=== PATIENT | female | born 1980 | race Caucasian/White ===

== ENCOUNTER 2017-07-10 20:00 | Emergency (ER) | payer OTHER ==
[2017-07-10 20:20] VITALS: BP 133/88
[2017-07-10] MEDS ORDERED: HYDROMORPHONE HCL INJ/PF 2 MG/ML AMPULE IM ONE (20:28)
[2017-07-10] MEDS ORDERED: LIDOCAINE 5% (700 MG) TRANSDERMAL ADH..PATCH TP ONE (20:29)
--- NOTE | 2017-07-10 20:34 | ER Document Report ---
HPI - HPI Patient complains to provider of: Back pain Onset: Yesterday Onset/Duration: Sudden Quality of pain: Achy Pain Level: 4 Context: Patient has a history of chronic back pain that worsened yesterday after she fell while dancing with her child. Patient states that her child pulled her over and she landed on top of him on the floor. Patient denies any radiculopathy or paresthesia. Patient denies any urinary retention or incontinence symptoms. Patient states pain is not typical location where she has chronic back pain flareups. Associated Symptoms: denies: Fever, Headache Exacerbated by: Movement Relieved by: Denies Similar symptoms previously: Yes Recently seen / treated by doctor: No - ROS ROS below otherwise negative: Yes Systems Reviewed and Negative: Yes All other systems reviewed and negative - CONSTITUTIONAL Constitutional: DENIES: Fever, Chills - GASTROINTESTINAL Gastrointestinal: DENIES: Nausea - URINARY Urinary: DENIES: Dysuria, Urgency, Frequency - REPRODUCTIVE Reproductive: DENIES: : - MUSCULOSKELETAL Musculoskeletal: REPORTS: Back Pain. DENIES: Extremity pain - DERM Skin Color: Normal Skin Problems: None Past Medical History - General Information source: Patient - Social History Smoking Status: Never Smoker Frequency of alcohol use: None Drug Abuse: None Occupation: None Lives with: Family Family History: Reviewed & Not Pertinent Musculoskeltal Medical History: Reports Other - Chronic back pain Psychiatric Medical History: Reports: Hx Anxiety, Hx Depression, Hx Post Traumatic Stress Disorder Surgical Hx: Negative - Immunizations Hx Diphtheria, Pertussis, Tetanus Vaccination: Yes Hx Pneumococcal Vaccination: 02/29/00 Vertical Provider Document - CONSTITUTIONAL Agree With Documented VS: Yes Exam Limitations: No Limitations General Appearance: WD/WN, No Apparent Distress Notes: PHYSICAL EXAMINATION: GENERAL: Well-appearing, well-nourished and in no acute distress. HEAD: Atraumatic, normocephalic. EYES: sclera clear, anicteric, conjunctiva are normal. ENT: nares patent, Moist mucous membranes. NECK: Normal range of motion, supple no lymphadenopathy LUNGS: respirations unlabored HEART: Regular rate and rhythm without murmurs EXTREMITIES: Normal range of motion, no pitting or edema. No cyanosis. Gait normal, pt ambulates without difficulty BACK: Thoracic paraspinal tenderness, no thoracic midline tenderness, lumbar paraspinal, mild lower midline tenderness, no deformities or step-offs. No CVA tenderness. NEUROLOGICAL: Cranial nerves grossly intact. Normal speech, normal gait. No saddle anesthesia. No foot drop PSYCH: Normal mood, normal affect. SKIN: Warm, Dry, normal turgor, no rashes or lesions noted. - INFECTION CONTROL TRAVEL OUTSIDE OF THE [place] IN LAST 30 DAYS: No Course - Vital Signs Vital signs: Temp Pulse Resp BP Pulse Ox 98.1 F 105 H 133/88 H 99 07/10/17 20:18 07/10/17 20:18 07/10/17 20:18 07/10/17 20:18 Discharge - Discharge Clinical Impression: Back pain Qualifiers: Back pain location: back pain in unspecified location Chronicity: unspecified Back pain laterality: bilateral Qualified Code(s): M54.9 - Dorsalgia, unspecified Condition: Stable Disposition: HOME, SELF-CARE Instructions: Chronic Back Pain ([facility]), Ice Packs ([facility]), Low Back Pain ([facility]) Additional Instructions: Return immediately for any new or worsening symptoms Followup with your primary care provider, call tomorrow to make a followup appointment Do not take the muscle relaxant if you are taking your Xanax, avoid mixing these medications to prevent adverse interactions Prescriptions: Methocarbamol [Robaxin 500 Mg Tablet] 500 mg PO QID PRN #20 tablet PRN Reason: Referrals: [facility] [Provider Group] - Follow up as needed
== END 2017-07-10 21:01 | disposition home or self-care (01) ==
LOC: ER 20:00
DX: M54.9 Dorsalgia, unspecified (principal); W01.0XXA Fall on same level from slipping, tripping and stumbling without subsequent striking against object, initial encounter; Y93.41 Activity, dancing
CPT/HCPCS: 99283; 96372; J1170

== ENCOUNTER 2017-12-27 01:13 | Emergency (ER) | payer OTHER ==
[2017-12-27] MEDS ORDERED: KETOROLAC TROMETHAMINE INJ/PF 30 MG/1 ML SDV IV ONE (03:02)
[2017-12-27] MEDS ORDERED: NORMAL SALINE 1000 ML 1,000 ML IV ONE (03:02)
[2017-12-27 03:15] LABS: ABSOLUTE EOSINOPHILS # (AUTO) 0.1 10^3/uL (0.0-0.6); ABSOLUTE LYMPHOCYTES (AUTO) 2.4 10^3/uL (0.5-4.7); ABSOLUTE MONOCYTES (AUTO) 0.4 10^3/uL (0.1-1.4); ABSOLUTE NEUT (AUTO) 3.2 10^3/uL (1.7-8.2); BASOPHILS % (AUTO) 0.6 % (0-2); EOSINOPHILS % (AUTO) 1.3 % (0-6); HEMATOCRIT 39.6 % (36.0-47.0); HEMOGLOBIN 13.2 g/dL (12.0-15.5); LYMPHOCYTES % (AUTO) 39.2 % (13-45); MEAN CORPUSCULAR HEMOGLOBIN 29.5 pg (27.0-33.4); MEAN CORPUSCULAR HGB CONC 33.3 g/dL (32.0-36.0); MEAN CORPUSCULAR VOLUME 89 fl (80-97); MONOCYTES % (AUTO) 5.9 % (3-13); PLATELET COUNT 240 10^3/uL (150-450); RED BLOOD COUNT 4.47 10^6/uL (3.72-5.28); RED CELL DISTRIBUTION WIDTH 13.4 % (11.5-14.0); TOTAL CELLS COUNTED % (AUTO) 100 %
[2017-12-27 03:36] LABS: ALANINE AMINOTRANSFERASE 22 U/L (9-52); ALBUMIN 4.5 g/dL (3.5-5.0); ALKALINE PHOSPHATASE 69 U/L (38-126); ANION GAP 13 (5-19); ASPARTATE AMINO TRANSFERASE 28 U/L (14-36); BILIRUBIN,DIRECT 0.1 mg/dL (0.0-0.4); BILIRUBIN,TOTAL 0.5 mg/dL (0.2-1.3); BLOOD UREA NITROGEN 7 mg/dL (7-20); CALCIUM 9.6 mg/dL (8.4-10.2); CARBON DIOXIDE 25 mmol/L (22-30); CHLORIDE 106 mmol/L (98-107); GLUCOSE 100 mg/dL (75-110); POTASSIUM 3.9 mmol/L (3.6-5.0); TOTAL PROTEIN 7.1 g/dL (6.3-8.2)
--- NOTE | 2017-12-27 03:51 | ER Document Report ---
ED General - General Chief Complaint: Abdominal Pain Stated Complaint: ABDOMINAL PAIN Time Seen by Provider: 12/27/17 01:54 Notes: Is a 37-year-old female who presents to the emergency department with right lower abdominal pain. She states the pain feels just like when she had ovarian cysts. Last time she had her ovarian cysts on both sides. She has been having this pain for the past 2 weeks, but has dealt with the pain at home. The pain is severe enough to where she feels she needs to have a hysterectomy. She was told previously that she was going to eventually need a hysterectomy, but because of her age she was told she could not have one. TRAVEL OUTSIDE OF THE [place] IN LAST 30 DAYS: No - Related Data Allergies/Adverse Reactions: No Known Allergies Allergy (Verified 07/16/11 22:19) Past Medical History - General Information source: Patient - Social History Smoking Status: Never Smoker Frequency of alcohol use: Occasional Drug Abuse: None Family History: Reviewed & Not Pertinent Renal/ Medical History: Denies: Hx Peritoneal Dialysis Psychiatric Medical History: Reports: Hx Anxiety, Hx Depression, Hx Post Traumatic Stress Disorder Past Surgical History: Reports: Hx Breast Surgery - Lt bx, Hx Gynecologic Surgery - Ovarian cyst removal - Immunizations Hx Diphtheria, Pertussis, Tetanus Vaccination: Yes Hx Pneumococcal Vaccination: 02/29/00 Review of Systems - Review of Systems Notes: REVIEW OF SYSTEMS: CONSTITUTIONAL : Denies fever, chills, or sweats. Denies recent illness. EENT: Denies eye, ear, throat, or mouth pain or symptoms. Denies nasal or sinus congestion. CARDIOVASCULAR: Denies chest pain. RESPIRATORY: Denies cough, cold, or chest congestion. Denies shortness of breath, difficulty breathing, or wheezing. GASTROINTESTINAL: Positive abdominal pain. Denies nausea, vomiting, or diarrhea. Denies constipation. Last BM: Day GENITOURINARY: Denies difficulty urinating, painful urination, burning, frequency, or blood in urine. FEMALE GENITOURINARY: Denies vaginal bleeding, abnormal or irregular periods. LMP: 1 week ago MUSCULOSKELETAL: Denies neck or back pain or joint pain or swelling. SKIN: Denies rash or skin lesions. HEMATOLOGIC : Denies easy bruising or bleeding. LYMPHATIC: Denies swollen, enlarged glands. NEUROLOGICAL: Denies altered mental status or loss of consciousness. Denies headache. Denies weakness or paralysis or loss of use of either side. Denies problems with gait or speech. Denies sensory or motor loss. PSYCHIATRIC: Denies anxiety or stress or depression. ALL OTHER SYSTEMS REVIEWED AND NEGATIVE. Physical Exam - Vital signs Vitals: Temp Pulse Resp BP Pulse Ox 98.2 F 90 18 148/86 H 100 12/27/17 01:13 12/27/17 01:13 12/27/17 01:13 12/27/17 01:13 12/27/17 01:13 - Notes Notes: PHYSICAL EXAMINATION: GENERAL: Well-appearing, well-nourished and in no acute distress. HEAD: Atraumatic, normocephalic. EYES: Pupils equal round and reactive to light, extraocular movements intact, sclera anicteric, conjunctiva are normal. ENT: nares patent, oropharynx clear without exudates. Moist mucous membranes. NECK: Normal range of motion, supple without lymphadenopathy LUNGS: Breath sounds clear to auscultation bilaterally and equal. No wheezes rales or rhonchi. HEART: Regular rate and rhythm without murmurs ABDOMEN: Lower abdominal tenderness, primarily on the right. Normoactive bowel sounds. No masses appreciated. DIRECT MARKETING INTERN: White discharge on pelvic exam, cervical motion tenderness noted. EXTREMITIES: Normal range of motion, no pitting or edema. No cyanosis. NEUROLOGICAL: No focal neurological deficits. Moves all extremities spontaneously and on command. PSYCH: Normal mood, normal affect. SKIN: Warm, Dry, normal turgor, no rashes or lesions noted. Course - Re-evaluation Re-evalutation: 12/27/17 02:15 Due to patient's history and physical exam, I do not suspect she has appendicitis. Her abdominal pain is primarily in the pelvic region, on the right side. Her differential diagnosis includes ovarian torsion, ovarian cyst, , urinary tract infection, and ectopic . 12/27/17 05:30 Her laboratory studies are unremarkable at this time. Awaiting transvaginal ultrasound results. 12/27/17 05:50 Patient's transvaginal ultrasound is unremarkable at this time, but shows she does have a dominant follicle and a fibroid could be the reason for her pain. For thoroughness, I will do a pelvic exam to check for PID. 12/27/17 06:20 Pelvic exam was done and white discharge was noted, cervical motion tenderness on exam. 12/27/17 06:40 Patient's wet mount is resulted. Results are consistent with pelvic inflammatory disease. I will treat her with 1 g of azithromycin and 250 mg of Rocephin. I also sent her home with Flagyl. She is stable for discharge at this time. Verbal discharge instructions were given to the patient. Patient verbalized understanding. - Vital Signs Vital signs: Temp Pulse Resp BP Pulse Ox 98.2 F 90 18 148/86 H 100 12/27/17 01:13 12/27/17 01:13 12/27/17 01:13 12/27/17 01:13 12/27/17 01:13 - Laboratory Result Diagrams: 12/27/17 03:00 12/27/17 03:00 Discharge - Discharge Clinical Impression: Abdominal pain, Vaginal discharge Condition: Stable Disposition: HOME, SELF-CARE Additional Instructions: You have been seen in the emergency department for abdominal pain. Your abdominal pain is from a pelvic infection. You have been treated for the infection in the emergency department. You have also been prescribed antibiotics for home. Please finish all these medications even if you are feeling better. You have also been prescribed Toradol, pain medication. You may take it every 6 hours as needed for the pain. Also, you have been given [place] for pain. Please take this medication at night if you are uncomfortable and cannot sleep. If you feel your symptoms are getting worse, develop a fever greater than 100.4, having worsening abdominal pain, or have symptoms that are worrisome to you, please return to the emergency department. Prescriptions: Ketorolac Tromethamine [Toradol 10 mg Tablet] 10 mg PO Q6HP PRN #20 tablet PRN Reason: Metronidazole [Flagyl 500 mg Tablet] 500 mg PO Q6H #28 tablet Referrals: DANY AGUIRRE MD [ACTIVE STAFF] - Follow up as needed
[2017-12-27] MEDS ORDERED: MORPHINE SULFATE 10 MG/ML INJ IV ONE ×2 (03:55→05:49)
--- NOTE | 2017-12-27 04:59 | RADIOLOGY REPORT (SQ) ---
Ultrasound pelvis transvaginal on 12/27/2017 at 4:15 AM CLINICAL INDICATION: Generalized abdominal pain COMPARISON: None FINDINGS: Multiple sonographic images are obtained throughout the pelvis by transvaginal approach, both transverse and sagittal images are obtained. Uterus measures approximately 9.9 x 4.3 x 5.3 cm. Endometrial stripe measures 1 cm which is within normal limits. Cervical length measures approximately 3.4 cm and the cervix is closed. There is a questionable small hypoechoic area in the lower uterus that may represent a small intramural fibroid measuring 1.2 cm in greatest diameter. The right ovary measures approximately 5.0 x 2.0 x 1.9 cm. Within the right ovary there is a simple 2.5 x 1.3 x 1.4 cm dominant follicle which should be considered benign with no follow-up recommended. Flow is demonstrated in the right ovary. Left ovary measures approximately 4.9 x 2.4 x 2.3 cm. Flow is demonstrated in the left ovary. No adnexal mass or fluid collection is noted. No free fluid is noted. IMPRESSION: Essentially unremarkable exam.
[2017-12-27 05:26] LABS: APPEARANCE,URINE CLEAR; BILIRUBIN,URINE NEGATIVE (NEGATIVE); COLOR,URINE STRAW; GLUCOSE, URINE NEGATIVE (NEGATIVE); KETONES,URINE NEGATIVE (NEGATIVE); LEUKOCYTE ESTERASE,URINE NEGATIVE (NEGATIVE); NITRITE,URINE NEGATIVE (NEGATIVE); PROTEIN,URINE NEGATIVE (NEGATIVE); URINE SPECIFIC GRAVITY 1.004; UROBILINOGEN,URINE NEGATIVE mg/dL (<2.0)
[2017-12-27 06:43] LABS: BACTERIA (WET MOUNT) 3+ BACTERIA SEEN; EPITHELIALS (WET MOUNT) 3+ EPITHELIALS SEEN; RBCS (WET MOUNT) NO RBCS SEEN; T.VAGINALIS (WET MOUNT) NO TRICHOMONAS SEEN; WBCS (WET MOUNT) 3+ WBCS SEEN; YEAST (WET MOUNT) NO YEAST SEEN
[2017-12-27] MEDS ORDERED: METRONIDAZOLE 500 MG TABLET PO ONE (06:55)
[2017-12-27] MEDS ORDERED: AZITHROMYCIN 250 MG TABLET PO ONE (06:55)
[2017-12-27] MEDS ORDERED: LIDOCAINE 1% INJ-PF (10 MG/ML) 30 ML SDV INJ ONE (06:56)
[2017-12-27] MEDS ORDERED: CEFTRIAXONE INJ 250 MG VIAL IM ONE (06:56)
[2017-12-27] MEDS ORDERED: HYDROCODONE/ACETAMINOPHEN 5-325 MG (6 TAB/ER DISP) PO PRN (06:57)
[2017-12-27 07:49] VITALS: BP 122/81
[2017-12-27 08:08] LABS: CHLAM PCR NOT DETECTED (NOT DETECT); GON PCR NOT DETECTED (NOT DETECT)
== END 2017-12-27 07:50 | disposition home or self-care (01) ==
LOC: ER 01:13
DX: R10.9 Unspecified abdominal pain (principal); R10.31 Right lower quadrant pain; N89.8 Other specified noninflammatory disorders of vagina
CPT/HCPCS: 96376; 99284; 96372; 96361; 96374; 96375; 36415; 87210; 84703; 85025; 80053; 81001; 87491; 87591; 76830; 93976; J3490; J1885; J2270; J7030; J0696

== ENCOUNTER 2018-05-14 23:50 | Emergency (ER) | payer OTHER | END 2018-05-15 01:25 | disposition left against medical advice (07) | LOC: ER 23:50 | DX: Z53.21 Procedure and treatment not carried out due to patient leaving prior to being seen by health care provider (principal); R10.30 Lower abdominal pain, unspecified ==

== ENCOUNTER 2018-07-15 16:59 | Emergency (ER) | payer OTHER ==
--- NOTE | 2018-07-15 17:25 | ER Document Report ---
ED Medical Screen (RME) - General Chief Complaint: Abdominal Pain Stated Complaint: LOWER ABDOMINAL PAIN Time Seen by Provider: 07/15/18 17:23 Primary Care Provider: CHELA SARKAR MD [Primary Care Provider] - Follow up as needed Mode of Arrival: Ambulatory Information source: Patient Notes: 37-year-old female presented to ED for complaint of left lower abdominal pain times a month. She states she has felt feverish at times and has had no appetite. She states 3 days ago she had a temperature of 100.2. She states she has a history of an umbilical hernia repair, fibroid cyst to the uterus x2, negative colonoscopy 5 months ago. She states she gets regular colonoscopies because mother has colon cancer. She also has a history of anxiety and depression. She states she smokes 2 cigarettes a day does not drink or do any drugs. Patient is very anxious. She states she went to primary care doctor and they ordered ultrasounds but she is not had them scheduled yet. I have greeted and performed a rapid initial assessment of this patient. A comprehensive ED assessment and evaluation of the patient, analysis of test results and completion of medical decision making process will be conducted by an additional ED providers. Dictation of this chart was performed using voice recognition software; therefore, there may be some unintended grammatical errors . TRAVEL OUTSIDE OF THE [place] IN LAST 30 DAYS: No - Related Data Allergies/Adverse Reactions: No Known Allergies Allergy (Verified 07/15/18 17:02) Past Medical History - Social History Chew tobacco use (# tins/day): No Drug Abuse: None Renal/ Medical History: Denies: Hx Peritoneal Dialysis Psychiatric Medical History: Reports: Hx Anxiety, Hx Depression, Hx Post Traumatic Stress Disorder Past Surgical History: Reports: Hx Breast Surgery - Lt bx, Hx Gynecologic Surgery - Ovarian cyst removal - Immunizations Hx Diphtheria, Pertussis, Tetanus Vaccination: Yes Physical Exam - Vital signs Vitals: Temp Pulse Resp BP Pulse Ox 98.4 F 95 16 148/86 H 100 07/15/18 17:09 07/15/18 17:09 07/15/18 17:09 07/15/18 17:09 07/15/18 17:09 Course - Vital Signs Vital signs: Temp Pulse Resp BP Pulse Ox 98.4 F 95 16 148/86 H 100 07/15/18 17:09 07/15/18 17:09 07/15/18 17:09 07/15/18 17:09 07/15/18 17:09 Doctor's Discharge - Discharge Referrals: CHELA SARKAR MD [Primary Care Provider] - Follow up as needed
[2018-07-15 17:54] LABS: ABSOLUTE LYMPHOCYTES (AUTO) 1.4 10^3/uL (0.5-4.7); ABSOLUTE MONOCYTES (AUTO) 0.3 10^3/uL (0.1-1.4); BASOPHILS % (AUTO) 0.4 % (0-2); EOSINOPHILS % (AUTO) 0.4 % (0-6); HEMATOCRIT 36.9 % (36.0-47.0); HEMOGLOBIN 12.1 g/dL (12.0-15.5); LYMPHOCYTES % (AUTO) 24.5 % (13-45); MEAN CORPUSCULAR HEMOGLOBIN 28.8 pg (27.0-33.4); MEAN CORPUSCULAR HGB CONC 32.8 g/dL (32.0-36.0); MEAN CORPUSCULAR VOLUME 88 fl (80-97); MONOCYTES % (AUTO) 4.9 % (3-13); PLATELET COUNT 256 10^3/uL (150-450); RED CELL DISTRIBUTION WIDTH 13.5 % (11.5-14.0); SEGMENTED NEUTROPHILS % (AUTO) 69.8 % (42-78); TOTAL CELLS COUNTED % (AUTO) 100 %; WHITE BLOOD COUNT 5.7 10^3/uL (4.0-10.5)
[2018-07-15 17:57] LABS: APPEARANCE,URINE CLEAR; BILIRUBIN,URINE NEGATIVE (NEGATIVE); COLOR,URINE YELLOW; GLUCOSE, URINE NEGATIVE (NEGATIVE); KETONES,URINE NEGATIVE (NEGATIVE); LEUKOCYTE ESTERASE,URINE TRACE (NEGATIVE); NITRITE,URINE NEGATIVE (NEGATIVE); PROTEIN,URINE NEGATIVE (NEGATIVE); URINE SPECIFIC GRAVITY 1.006; UROBILINOGEN,URINE NEGATIVE mg/dL (<2.0)
[2018-07-15 18:12] LABS: ALANINE AMINOTRANSFERASE 20 U/L (9-52); ALBUMIN 4.4 g/dL (3.5-5.0); ALKALINE PHOSPHATASE 63 U/L (38-126); ANION GAP 10 (5-19); ASPARTATE AMINO TRANSFERASE 20 U/L (14-36); BILIRUBIN,DIRECT 0.1 mg/dL (0.0-0.4); BILIRUBIN,TOTAL 0.3 mg/dL (0.2-1.3); BLOOD UREA NITROGEN 7 mg/dL (7-20); CALCIUM 9.4 mg/dL (8.4-10.2); CARBON DIOXIDE 25 mmol/L (22-30); CHLORIDE 105 mmol/L (98-107); GLUCOSE 90 mg/dL (75-110); POTASSIUM 4.1 mmol/L (3.6-5.0); TOTAL PROTEIN 7.1 g/dL (6.3-8.2)
--- NOTE | 2018-07-15 19:21 | RADIOLOGY REPORT (SQ) ---
EXAM DESCRIPTION: U/S NON-OB PELVIS TV W/O DOP COMPLETED DATE/TIME: 07/15/2018 6:46 pm REASON FOR STUDY: left pelvic/abdominal pain COMPARISON: 12/27/2017 TECHNIQUE: Dynamic and static grayscale images acquired of the pelvis via transvaginal approach and recorded on PACS. Additional selected color Doppler and spectral images recorded. LIMITATIONS: None. FINDINGS: UTERUS: Normal contour. Within the left lower uterus myometrium is a 1.6 x 1.5 x 1.5 cm h eterogenous, avascular lesion which appears similar in size when compared to prior imaging given the differences in technique and likely represents a fibroid. ENDOMETRIAL STRIPE: No focal or generalized thickening. No masses. CERVIX: No nabothian cysts. RIGHT OVARY AND DOPPLER: Normal size. No worrisome masses. Normal arterial vascular flow without evid ence for torsion. LEFT OVARY AND DOPPLER: Normal size. Normal arterial vascular flow without evidence for torsion. Th ere is MA 2.4 x 1.2 x 2.2 cm avascular complex cystic lesion which is not seen on prior imaging. FREE FLUID: None noted. OTHER: No other significant finding. MEASUREMENTS: UTERUS: 8.7 x 4.9 x 5.6 cm ENDOMETRIAL STRIPE: 1.7 cm RIGHT OVARY: 5.3 x 2.2 x 1.2 cm LEFT OVARY: 4.7 x 2.2 x 3.1 cm IMPRESSION: 1. Complex left ovarian cyst, new since prior. Differential considerations include hemorrhagic cyst versus endometrioma and less likely dermoid. Recommend follow-up in 6 to 12 weeks, as described breann renteria 2. Fibroid uterus, unchanged from prior. COMMENT: Followup of asymptomatic indeterminate ovarian cysts detected by ultrasound in PREMENOPAUS [place] patients Cyst with findings suggestive of, but not classic for, hemorrhagic cyst, endometrioma or dermoid: *6-12 week followup US; if not a resolving hemorrhagic cyst, continued US or MRI followup; if endomet rioma or dermoid still not confirmed, consider surgical consultation Single thin septation or focal wall calcification: *Same as for benign cyst, based on size Multiple septations: *Consider surgical consultation Nodule in a cyst: *No blood flow in nodule: MRI or surgical consultation *Blood flow in nodule: surgical consultation Note: If cyst is clinically symptomatic or otherwise concerning, other followup may be warranted. Based on recommendations of the Society for Radiologists in Ultrasound Consensus Conference Statement 2010 on management of asymptomatic ovarian and other adnexal cysts imaged at ultrasound. TECHNICAL DOCUMENTATION: JOB ID: [id number] [employer]- All Rights Reserved Rev-07/15 Reading location - IP/workstation name: [email or web address]
[2018-07-15] MEDS ORDERED: KETOROLAC TROMETHAMINE 60 MG/2 ML SDV IM ONE (19:36)
--- NOTE | 2018-07-15 19:41 | ER Document Report ---
ED General - General Chief Complaint: Abdominal Pain Stated Complaint: LOWER ABDOMINAL PAIN Time Seen by Provider: 07/15/18 17:23 Primary Care Provider: CHELA SARKAR MD [Primary Care Provider] - Follow up as needed Mode of Arrival: Ambulatory Information source: Patient TRAVEL OUTSIDE OF THE [place] IN LAST 30 DAYS: No - HPI Patient complains to provider of: Left lower quadrant abdominal pain Onset: Other - 2 months Onset/Duration: Gradual Quality of pain: Sharp Severity: Severe Pain Level: 5 Associated symptoms: None. denies: Chills, Fever Exacerbated by: Denies Relieved by: Denies Similar symptoms previously: No Recently seen / treated by doctor: No Notes: Patient is a 37-year-old female coming in today with left abdominal pelvic pain that is been present for the past 2 months and it is fairly constant. Is worse today. Having some vaginal spotting. No fevers or chills. No nausea vomiting or diarrhea. - Related Data Allergies/Adverse Reactions: No Known Allergies Allergy (Verified 07/15/18 17:02) Past Medical History - General Information source: Patient - Social History Smoking Status: Current Some Day Smoker Chew tobacco use (# tins/day): No Drug Abuse: None Family History: Reviewed & Not Pertinent Patient has suicidal ideation: No Patient has homicidal ideation: No Renal/ Medical History: Denies: Hx Peritoneal Dialysis Psychiatric Medical History: Reports: Hx Anxiety, Hx Depression, Hx Post Traumatic Stress Disorder Past Surgical History: Reports: Hx Breast Surgery - Lt bx, Hx Gynecologic Surgery - Ovarian cyst removal - Immunizations Hx Diphtheria, Pertussis, Tetanus Vaccination: Yes Hx Pneumococcal Vaccination: 02/29/00 Review of Systems - Review of Systems Notes: Constitutional: No fevers. No chills. EENT: No eye redness. No eye pain. No ear pain. No sore throat. Cardiovascular: No chest pain. No palpitations. Respiratory: No cough. No shortness of breath. No respiratory distress. Gastrointestinal: No abdominal pain. No nausea, vomiting, or diarrhea. Genitourinary: Left lower pelvic pain Musculoskeletal: Atraumatic. No swelling. No deformities. Skin: No rash or lesions. Lymphatic: No swollen lymph nodes. Neurologic: No headache. No syncope. Psychiatric: No suicidal or homicidal ideation. Physical Exam - Vital signs Vitals: Temp Pulse Resp BP Pulse Ox 98.4 F 95 16 148/86 H 100 07/15/18 17:09 07/15/18 17:09 07/15/18 17:09 07/15/18 17:09 07/15/18 17:09 - Notes Notes: General: Well-developed, well-nourished. In no acute distress. Non-toxic appearing. Cardiac: Well-perfused. Regular rate and rhythm. No murmurs, rubs, or gallops. Pulmonary: No respiratory distress. No cyanosis. Bilateral lung fiels are clear to auscultation. Abdominal: Left lower abdominal pelvic tenderness to palpation. Mild guarding. No rebound. Bowel sounds present in all 4 quadrants. Otherwise abdomen benign HEENT: Head is atraumatic. Conjunctivae not reddened. No tearing. PERRL. EOMI. Orbits atraumatic. No periorbital swelling or erythema. Oropharynx is without erythema, swelling, or exudates. Neck: Supple. No adenopathy. No meningismus. Dermatologic: Warm with good turgor. No rash. Atraumatic. Chest: Atraumatic. No chest wall tenderness to palpation. Musculoskeletal: Moves all extremities well. No range of motion deficits. no muscular or joint tenderness. No paraspinal muscle tenderness. no midline spinal tenderness or step-off. Genitourinary: Examination deferred Neurologic: No gross neurologic deficits. Psychiatric: Normal mood. Course - Re-evaluation Re-evalutation: 07/15/18 19:40 Laboratory studies completely normal. Ultrasound does show a complex cyst or mass in the left adnexa which will need evaluation by [facility]. Will discharge for now with prescription for Vicoprofen and have her follow-up in the gynecology clinic - Vital Signs Vital signs: Temp Pulse Resp BP Pulse Ox 98.4 F 95 16 148/86 H 100 07/15/18 17:09 07/15/18 17:09 07/15/18 17:09 07/15/18 17:09 07/15/18 17:09 - Laboratory Result Diagrams: 07/15/18 17:37 07/15/18 17:37 Laboratory results interpreted by me: 07/15/18 17:37 Ur Leukocyte Esterase TRACE H Discharge - Discharge Clinical Impression: Complex cyst of uterine adnexa Condition: Good Disposition: HOME, SELF-CARE Instructions: Ovarian Cyst ([facility]) Additional Instructions: You have a complex cyst that needs to be evaluated by the carton and can supply supervisor in the office. Please call Tuesday for the soonest appointment to have this evaluated. Try to take Tylenol or ibuprofen for pain at home. If the pain is too severe, you may use the prescribed narcotic pain medication. Prescriptions: Hydrocodone/Ibuprofen [Hydrocodone-Ibuprofen 7.5-200] 1 each PO Q6HP PRN #12 tablet PRN Reason: Referrals: DANY AGUIRRE MD [ACTIVE STAFF] - Follow up as needed
[2018-07-15 20:18] VITALS: BP 129/92
== END 2018-07-15 20:18 | disposition home or self-care (01) ==
LOC: ER 16:59
DX: N85.8 Other specified noninflammatory disorders of uterus (principal); R10.2 Pelvic and perineal pain; F17.200 Nicotine dependence, unspecified, uncomplicated
CPT/HCPCS: 36415; 76830; 80053; 81001; 84703; 85025; 99284

== ENCOUNTER 2018-09-20 21:31 | Emergency (ER) | payer OTHER ==
[2018-09-20] MEDS ORDERED: OXYCODONE-ACETAMINOPHEN 5-325 MG TABLET PO ONE (23:50)
[2018-09-20] MEDS ORDERED: PROMETHAZINE HCL 25 MG TABLET PO ONE (23:50)
--- NOTE | 2018-09-20 23:52 | ER Document Report ---
ED GI/ - General Chief Complaint: Abdominal Pain Stated Complaint: PELVIC AND GROIN PAIN Time Seen by Provider: 09/20/18 23:43 Primary Care Provider: CHELA SARKAR MD [NO LOCAL MD] - Follow up as needed Notes: Patient is a 38-year-old female that comes to the emergency department for chief complaint of sharp pain in the left pelvic area. She states she has had pains since February, about 2 months ago she was diagnosed with a complex cyst, she states she was seen in a follow-up and they did a transabdominal ultrasound and told her that it was normal. She follows with the [facility]. She reports some nausea today but denies vomiting. She denies fever/chills. She reports frequent intermittent vaginal bleeding but none currently. She denies vaginal discharge or recent sexual intercourse. Past medical history of anxiety, depression, ADHD, all medicated. Past surgical history of umbilical hernia repair. TRAVEL OUTSIDE OF THE [place] IN LAST 30 DAYS: No - Related Data Allergies/Adverse Reactions: No Known Allergies Allergy (Verified 07/15/18 17:02) Past Medical History - General Information source: Patient - Social History Smoking Status: Never Smoker Drug Abuse: None Lives with: Spouse/Significant other Family History: Reviewed & Not Pertinent Renal/ Medical History: Denies: Hx Peritoneal Dialysis Psychiatric Medical History: Reports: Hx Anxiety, Hx Depression, Hx Post Traumatic Stress Disorder Past Surgical History: Reports: Hx Breast Surgery - Lt bx, Hx Gynecologic Surger y - Ovarian cyst removal - Immunizations Hx Diphtheria, Pertussis, Tetanus Vaccination: Yes Hx Pneumococcal Vaccination: 02/29/00 Review of Systems - Review of Systems Constitutional: No symptoms reported EENT: No symptoms reported Cardiovascular: No symptoms reported Respiratory: No symptoms reported Gastrointestinal: See HPI Genitourinary: See HPI Female Genitourinary: See HPI Musculoskeletal: No symptoms reported Skin: No symptoms reported Hematologic/Lymphatic: No symptoms reported Neurological/Psychological: No symptoms reported Physical Exam - Vital signs Vitals: Temp Pulse Resp BP Pulse Ox 98.2 F 87 14 138/89 H 99 09/20/18 21:35 09/20/18 21:35 09/20/18 21:35 09/20/18 21:35 09/20/18 21:35 - Notes Notes: GENERAL: Alert, interacts well. No acute distress. HEAD: Normocephalic, atraumatic. EYES: Pupils equal, round, and reactive to light. Extraocular movements intact. ENT: Oral mucosa moist, tongue midline. Oropharynx unremarkable. Airway patent. LUNGS: Clear to auscultation bilaterally, no wheezes, rales, or rhonchi. No respiratory distress. HEART: Regular rate and rhythm. No murmur ABDOMEN: Mild tenderness of the general lower abdomen, nonspecific, no guarding. Questionably slightly worse in the left lower abdomen/pelvis. No rigidity, no rebound tenderness. GENITOURINARY: Deferred EXTREMITIES: Moves all 4 extremities spontaneously. No edema, normal radial and dorsalis pedis pulses bilaterally. No cyanosis. BACK: no cervical, thoracic, lumbar midline tenderness. No saddle anesthesia, normal distal neurovascular exam. Moves all extremities in full range of motion. NEUROLOGICAL: Alert and oriented x3. Normal speech. Cranial nerves II through XII grossly intact. PSYCH: Slightly anxious SKIN: Warm, dry, normal turgor. No rashes or lesions noted. Course - Re-evaluation Re-evalutation: Patient is well-appearing. Vital signs unremarkable. Her abdomen shows only mild generalized tenderness of the lower abdomen, possibly slightly worse on the left, definitely no guarding. CBC, chemistry, urinalysis unremarkable, test is negative. Ultrasound showing small cyst on the right ovary, patient has no specific symptoms of this area. This is only 1 cm, no torsion, no concerning findings, multiple fibroids in the uterus. Cystic area on the left ovary has resolved. Discussed with patient. 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 I did offer a pelvic examination for thorough testing but patient declined. Discussed follow-up and return precautions. Patient states understanding and agreement. - Vital Signs Vital signs: Temp Pulse Resp BP Pulse Ox 98.7 F 85 16 131/83 H 99 09/21/18 01:54 09/21/18 01:54 09/21/18 01:54 09/21/18 01:54 09/21/18 01:54 - Laboratory Result Diagrams: 09/20/18 23:59 09/20/18 23:59 Discharge - Discharge Clinical Impression: Lower abdominal pain Condition: Stable Disposition: HOME, SELF-CARE Additional Instructions: There is a very small cyst on the right ovary but this is not in the location of your pain. This cyst should resolve on its own and does not require follow-up. You do have multiple fibroids in the uterus. I suspect your pain has some component of the fibroids and endometriosis, the fibroids are also probably the cause of your frequent vaginal bleeding. Follow-up with your primary care and [facility] DE[facility] CHAIR for additional management of this. Return if you worsen including vomiting, severe worsening pain, fever, or any other concerning or worsening symptoms. Referrals: CHELA SARKAR MD [NO LOCAL MD] - Follow up as needed
[2018-09-21 00:09] LABS: ABSOLUTE MONOCYTES (AUTO) 0.3 10^3/uL (0.1-1.4); ABSOLUTE NEUT (AUTO) 3.1 10^3/uL (1.7-8.2); BASOPHILS % (AUTO) 0.6 % (0-2); EOSINOPHILS % (AUTO) 0.8 % (0-6); HEMOGLOBIN 12.6 g/dL (12.0-15.5); LYMPHOCYTES % (AUTO) 36.2 % (13-45); MEAN CORPUSCULAR HEMOGLOBIN 29.3 pg (27.0-33.4); MEAN CORPUSCULAR HGB CONC 34.1 g/dL (32.0-36.0); MEAN CORPUSCULAR VOLUME 86 fl (80-97); MONOCYTES % (AUTO) 6.4 % (3-13); PLATELET COUNT 297 10^3/uL (150-450); RED BLOOD COUNT 4.31 10^6/uL (3.72-5.28); RED CELL DISTRIBUTION WIDTH 13.3 % (11.5-14.0); TOTAL CELLS COUNTED % (AUTO) 100 %; WHITE BLOOD COUNT 5.5 10^3/uL (4.0-10.5)
[2018-09-21 00:22] LABS: APPEARANCE,URINE SLIGHTLY-CLOUDY; BILIRUBIN,URINE NEGATIVE (NEGATIVE); COLOR,URINE YELLOW; GLUCOSE, URINE NEGATIVE (NEGATIVE); KETONES,URINE NEGATIVE (NEGATIVE); LEUKOCYTE ESTERASE,URINE NEGATIVE (NEGATIVE); NITRITE,URINE NEGATIVE (NEGATIVE); PROTEIN,URINE NEGATIVE (NEGATIVE); URINE SPECIFIC GRAVITY 1.005; UROBILINOGEN,URINE NEGATIVE mg/dL (<2.0)
[2018-09-21 00:29] LABS: ANION GAP 10 (5-19); BLOOD UREA NITROGEN 9 mg/dL (7-20); CALCIUM 9.5 mg/dL (8.4-10.2); CARBON DIOXIDE 26 mmol/L (22-30); CHLORIDE 103 mmol/L (98-107); GLUCOSE 100 mg/dL (75-110)
--- NOTE | 2018-09-21 01:01 | RADIOLOGY REPORT (SQ) ---
EXAM DESCRIPTION: US PELVIS TRANSVAGINAL COMPLETED DATE/TME: 09/20/2018 23:49 CLINICAL HISTORY: 38 years, Female, left pelvic pain, hx cysts COMPARISON: 07/15/2018 ultrasound TECHNIQUE: Transverse and longitudinal transvaginal sonographic images of the pelvis LIMITATIONS: None. FINDINGS: The uterus measures 9.1 x 4.9 x 4.2 cm. Heterogeneous echotexture to the myometrium with multiple uterine fibroids. The endometrium measures 8.5 mm in thickness. The right ovary measures 4.4 x 2.2 x 1.9 cm, the left 3.8 x 2.0 x 2.3 cm. Arterial flow to each ovary. No solid adnexal mass. There is a minimally complex follicle of the right ovary measuring 1.0 x 1.0 cm. No free fluid. Portions of the left ovary were not well seen due to bowel gas. IMPRESSION: Minimally complex 1 cm follicle of the right ovary. This does not require follow-up. Previously described complex left ovarian cyst is not redemonstrated on this exam. Fibroid change to the uterus. copyright 2010 [employer]- All Rights Reserved
[2018-09-21] MEDS ORDERED: HYDROCODONE/ACETAMINOPHEN 5-325 MG (6 TAB/ER DISP) PO PRN (01:32)
[2018-09-21 01:57] VITALS: BP 131/83
== END 2018-09-21 01:56 | disposition home or self-care (01) ==
LOC: ER 21:31
DX: N80.9 Endometriosis, unspecified (principal); D25.9 Leiomyoma of uterus, unspecified; N83.201 Unspecified ovarian cyst, right side; R10.2 Pelvic and perineal pain; F41.9 Anxiety disorder, unspecified; F32.9 Major depressive disorder, single episode, unspecified; F90.9 Attention-deficit hyperactivity disorder, unspecified type; Z79.899 Other long term (current) drug therapy
CPT/HCPCS: 36415; 76830; 80048; 81001; 81025; 85025; 93976; 99284

== ENCOUNTER 2019-03-23 22:20 | Emergency (ER) | payer OTHER ==
[2019-03-23] MEDS ORDERED: ONDANSETRON 4 MG TAB.RAPDIS PO ONE (23:08)
--- NOTE | 2019-03-23 23:11 | ER Document Report ---
ED Medical Screen (RME) - General Chief Complaint: Abdominal Pain Stated Complaint: LOWER ABDOMINAL PAIN RIGHT SIDE Time Seen by Provider: 03/23/19 23:05 Primary Care Provider: TBOIAS PELAYO [Primary Care Provider] - Follow up as needed Mode of Arrival: Wheelchair Information source: Patient Notes: This 38-year-old female with history of ruptured ovarian cyst presents with right lower quad abdominal pelvic pain. Reports that she has felt this way when she had a ruptured ovarian cyst in the past. Reports vaginal discharge for the past month but that is unusual. Reports pain started 2 days ago denies fever vomiting diarrhea complains of some nausea. Denies pain with void. Right lower quad very tender to palpate. Patient reports pain is constant worse when she moves. Reports decreased appetite. Patient still has her appendix. I have greeted and performed a rapid initial assessment of this patient. A comprehensive ED assessment and evaluation of the patient, analysis of test results and completion of the medical decision making process will be conducted by additional ED providers. TRAVEL OUTSIDE OF THE [place] IN LAST 30 DAYS: No - Related Data Allergies/Adverse Reactions: No Known Allergies Allergy (Verified 07/15/18 17:02) Past Medical History Renal/ Medical History: Denies: Hx Peritoneal Dialysis Psychiatric Medical History: Reports: Hx Anxiety, Hx Depression, Hx Post Traumatic Stress Disorder Past Surgical History: Reports: Hx Breast Surgery - Lt bx, Hx Gynecologic Surgery - Ovarian cyst removal - Immunizations Hx Diphtheria, Pertussis, Tetanus Vaccination: Yes Physical Exam - Vital signs Vitals: Temp Pulse Resp BP Pulse Ox 99.0 F 100 20 143/91 H 97 03/23/19 22:25 03/23/19 22:25 03/23/19 22:25 03/23/19 22:25 03/23/19 22:25 Course - Vital Signs Vital signs: Temp Pulse Resp BP Pulse Ox 99.0 F 100 20 143/91 H 97 03/23/19 22:25 03/23/19 22:25 03/23/19 22:25 03/23/19 22:25 03/23/19 22:25 Doctor's Discharge - Discharge Referrals: [facility] [Primary Care Provider] - Follow up as needed
[2019-03-23 23:54] LABS: ABSOLUTE EOSINOPHILS # (AUTO) 0.1 10^3/uL (0.0-0.6); ABSOLUTE LYMPHOCYTES (AUTO) 1.9 10^3/uL (0.5-4.7); ABSOLUTE MONOCYTES (AUTO) 0.5 10^3/uL (0.1-1.4); ABSOLUTE NEUT (AUTO) 3.2 10^3/uL (1.7-8.2); BASOPHILS % (AUTO) 0.5 % (0-2); EOSINOPHILS % (AUTO) 1.3 % (0-6); HEMATOCRIT 36.4 % (36.0-47.0); HEMOGLOBIN 12.1 g/dL (12.0-15.5); MEAN CORPUSCULAR HEMOGLOBIN 27.3 pg (27.0-33.4); MEAN CORPUSCULAR HGB CONC 33.2 g/dL (32.0-36.0); MEAN CORPUSCULAR VOLUME 82 fl (80-97); PLATELET COUNT 343 10^3/uL (150-450); RED BLOOD COUNT 4.43 10^6/uL (3.72-5.28); RED CELL DISTRIBUTION WIDTH 14.6 % (11.5-14.0); SEGMENTED NEUTROPHILS % (AUTO) 56.2 % (42-78); TOTAL CELLS COUNTED % (AUTO) 100 %; WHITE BLOOD COUNT 5.6 10^3/uL (4.0-10.5)
[2019-03-24 00:04] LABS: APPEARANCE,URINE CLEAR; BILIRUBIN,URINE NEGATIVE (NEGATIVE); COLOR,URINE STRAW; GLUCOSE, URINE NEGATIVE (NEGATIVE); KETONES,URINE NEGATIVE (NEGATIVE); LEUKOCYTE ESTERASE,URINE NEGATIVE (NEGATIVE); NITRITE,URINE NEGATIVE (NEGATIVE); PROTEIN,URINE NEGATIVE (NEGATIVE); URINE SPECIFIC GRAVITY 1.008; UROBILINOGEN,URINE NEGATIVE mg/dL (<2.0)
[2019-03-24 00:10] LABS: ALBUMIN 4.7 g/dL (3.5-5.0); ALKALINE PHOSPHATASE 82 U/L (38-126); ANION GAP 12 (5-19); ASPARTATE AMINO TRANSFERASE 28 U/L (14-36); BILIRUBIN,DIRECT 0.4 mg/dL (0.0-0.4); BILIRUBIN,TOTAL 0.5 mg/dL (0.2-1.3); BLOOD UREA NITROGEN 12 mg/dL (7-20); CALCIUM 9.6 mg/dL (8.4-10.2); CARBON DIOXIDE 27 mmol/L (22-30); CHLORIDE 100 mmol/L (98-107); GLUCOSE 90 mg/dL (75-110); POTASSIUM 4.6 mmol/L (3.6-5.0); TOTAL PROTEIN 7.5 g/dL (6.3-8.2)
--- NOTE | 2019-03-24 00:48 | RADIOLOGY REPORT (SQ) ---
CLINICAL HISTORY: Right lower quad pelvic ttp, hx ruptured cyst COMPARISON: None. TECHNIQUE: US PELVIS TRANSVAGINAL 03/23/2019 11:09 PM GENERATOR TECHNICIAN FINDINGS: The uterus measures 8.2 cm and contains a 1.8 cm fibroid. Endometrial stripe measures 1.3 cm. Both ovaries are normal in size with patent flow. IMPRESSION: No evidence of large ovarian cyst or torsion.
[2019-03-24] MEDS ORDERED: ONDANSETRON 4 MG TAB.RAPDIS ONE (02:44)
[2019-03-24 03:05] VITALS: BP 135/90
--- NOTE | 2019-03-24 05:57 | ER Document Report ---
Entered by VITALIY ESTRADA SCRIBE 03/24/19 0256 Acting as scribe for:JARETH KNIGHT IV, MD ED GI/ - General Chief Complaint: Abdominal Pain Stated Complaint: LOWER ABDOMINAL PAIN RIGHT SIDE Time Seen by Provider: 03/23/19 23:05 Primary Care Provider: TOBIAS PELAYO [NO LOCAL MD] - Follow up as needed Mode of Arrival: Ambulatory Information source: Patient Notes: This 38 year old female patient with a history of ovarian cysts and endometrio sis presents to the ED today with complaints of RLQ and pelvic pain that began x3 days ago. Patient describes the pain as chronic and intermittent due to her history of ovarian cysts, but her symptoms have worsened since onset. Patient states that she has experienced similar symptoms in the past when she had an ovarian cyst. Patient reports nausea, vomiting, and decreased appetite. Patient states that she still has her appendix. A CAT scan of the abdomen/pelvis was offered to the patient, but the patient refused at this time. TRAVEL OUTSIDE OF THE [place] IN LAST 30 DAYS: No - Related Data Allergies/Adverse Reactions: No Known Allergies Allergy (Verified 07/15/18 17:02) Past Medical History - General Information source: Patient - Social History Smoking Status: Never Smoker Cigarette use (# per day): No Chew tobacco use (# tins/day): No Smoking Education Provided: No Family History: Reviewed & Not Pertinent Patient has suicidal ideation: No Patient has homicidal ideation: No Renal/ Medical History: Reports: Hx Ovarian Cysts Psychiatric Medical History: Reports: Hx Anxiety, Hx Depression, Hx Post Traumatic Stress Disorder Past Surgical History: Reports: Hx Breast Surgery - Lt bx, Hx Gynecologic Surgery - Ovarian cyst removal - Immunizations Hx Diphtheria, Pertussis, Tetanus Vaccination: Yes Hx Pneumococcal Vaccination: 02/29/00 Review of Systems - Review of Systems Constitutional: No symptoms reported EENT: No symptoms reported Cardiovascular: No symptoms reported Respiratory: No symptoms reported Gastrointestinal: See HPI, Abdominal pain, Nausea, Vomiting, Poor appetite Genitourinary: No symptoms reported Female Genitourinary: No symptoms reported Musculoskeletal: No symptoms reported Skin: No symptoms reported Hematologic/Lymphatic: No symptoms reported Neurological/Psychological: No symptoms reported -: Yes All other systems reviewed and negative Physical Exam - Vital signs Vitals: Temp Pulse Resp BP Pulse Ox 99.0 F 100 20 143/91 H 97 03/23/19 22:25 03/23/19 22:25 03/23/19 22:25 03/23/19 22:25 03/23/19 22:25 - General General appearance: Alert In distress: None - HEENT Head: Normocephalic, Atraumatic Eyes: Normal Pupils: PERRL - Respiratory Respiratory status: No respiratory distress Chest status: Nontender Breath sounds: Normal Chest palpation: Normal - Cardiovascular Rhythm: Regular Heart sounds: Normal auscultation Murmur: No - Abdominal Inspection: Normal Distension: No distension Bowel sounds: Normal Tenderness: McBurney's point Organomegaly: No organomegaly - Back Back: Normal, Nontender - Extremities General upper extremity: Normal inspection General lower extremity: Normal inspection - Neurological Neuro grossly intact: Yes - Psychological Associated symptoms: Normal affect, Normal mood - Skin Skin Temperature: Warm Skin Moisture: Dry Skin Color: Normal Course - Re-evaluation Re-evalutation: 03/24/19 02:56 Results of ED MSE discussed with patient. Given that the patient has right lower quadrant tenderness, a CAT scan of the abdomen pelvis was recommended to the patient. Patient refused to have the CAT scan done at this time. This MD counseled the patient that a negative ultrasound does not rule out the possibility of appendicitis. Patient stated that she thinks the pain is related to her endometriosis. This MD encourage the patient to return to the any time if her symptoms worsened and she decides to be evaluated further for her pain. - Vital Signs Vital signs: Temp Pulse Resp BP Pulse Ox 98.1 F 92 18 135/90 H 99 03/24/19 03:04 03/24/19 03:04 03/24/19 03:04 03/24/19 03:04 03/24/19 03:04 - Laboratory Result Diagrams: 03/23/19 23:35 03/23/19 23:35 Laboratory results interpreted by me: 03/23/19 23:35 RDW 14.6 H - Diagnostic Test Radiology reviewed: Reports reviewed Discharge - Discharge Clinical Impression: Right lower quadrant abdominal pain Condition: Good Disposition: HOME, SELF-CARE Instructions: Abdominal Pain ([facility]) Additional Instructions: Return to the Emergency Department without delay if any worse. HOME CARE INSTRUCTIONS & INFORMATION: Thank you for choosing us for your medical needs. We hope you're satisfied with the care you received. After you leave, you must properly care for your problem and, at the same time, observe its progress. Any condition can change. Some illnesses can change rapidly over hours or days. If your condition worsens, return to the Emergency Department or see your physician promptly. ABOUT YOUR X-RAYS AND EKG'S: If you had an EKG or X-rays taken, they have been read by the Emergency Physician. The X-rays and EKG's will also be read by a Radiologist or Rig Builder Helper within 24 hours. If discrepancies are noted, you will be notified by telephone. Please be certain the ED has a correct telephone number & address where you can be reached. Also, realize that some fractures or abnormalities do not show up on initial X-rays. If your symptoms continue, see your physician. ABOUT YOUR LABORATORY TEST: If you had laboratory tests, the results have been reviewed by the Emergency Physician. Some test results (for example cultures) may not be available for several days. You will be contacted if any test result shows you need additional treatment. Please be certain the ED has a correct telephone number and address where you can be reached. ABOUT YOUR MEDICATIONS: You will receive instructions on how to take your medicine on the prescription label you receive. Additional information may be provided by the Pharmacy. If you have questions afterwards, call the ED for clarification or further instructions. Some prescribed medications may cause drowsiness. Do not perform tasks such as driving a car or operating machinery without consulting your Pharmacist. If you feel you need a refill of pain medication, your condition will need re-evaluation. Please do not call for a refill of any medication. ABOUT YOUR SIGNATURE: Signature of this document acknowledges to followin. Understanding that you received emergency treatment and that you may be released before al medical problems are known or treated. Please be certain the ED has a correct phone number & address where you can be reached. 2. Acknowledgement that you will arrange for follow-up care as recommended. 3. Authorization for the Emergency Physician to provide information to your follow-up Physician in order to maximize your care. AT ANY TIME, IF YOUR SYMPTOMS CHANGE SIGNIFICANTLY OR WORSEN OR YOU DEVELOP NEW SYMPTOMS, RETURN TO THE EMERGENCY DEPARTMENT IMMEDIATELY FOR RE-EVALUATION. OUR GOAL IS TO PROVIDE EXCELLENT MEDICAL CARE! WE HOPE THAT WE HAVE MET YOUR EXPECTATIONS DURING YOUR EMERGENCY DEPARTMENT VISIT AND THAT YOU FEEL YOU HAVE RECEIVED EXCELLENT CARE! Referrals: [facility] [NO LOCAL MD] - Follow up as needed I personally performed the services described in the documentation, reviewed and edited the documentation which was dictated to the scribe in my presence, and it accurately records my words and actions.
== END 2019-03-24 03:11 | disposition home or self-care (01) ==
LOC: ER 22:20
DX: R10.31 Right lower quadrant pain (principal); R10.30 Lower abdominal pain, unspecified
CPT/HCPCS: 99284; 36415; 85025; 81025; 80053; 81001; 76830; 93976; S0119

== ENCOUNTER 2020-02-10 16:01 | Emergency (ER) | payer OTHER ==
[2020-02-10] MEDS ORDERED: KETOROLAC TROMETHAMINE 60 MG/2 ML SDV IM ONE (16:26)
--- NOTE | 2020-02-10 16:28 | ER Document Report ---
ED Medical Screen (RME) - General Chief Complaint: Shoulder Injury Stated Complaint: RIGHT SHOULDER PAIN Time Seen by Provider: 02/10/20 16:22 Primary Care Provider: TORI MARS PA [Primary Care Provider] - Follow up as needed TRAVEL OUTSIDE OF THE [place] IN LAST 30 DAYS: No - HPI Notes: 02/10/20 16:26 39-year-old female presents to ED for evaluation of right shoulder injury. Patient was stretching earlier today when she felt the shoulder pop and snap like a rubber band. Patient reports that she cannot move the shoulder. She had notes of burning sensation to the posterior aspect of her back. Patient states she can move her elbow her hand and her wrist. Notes that she cannot perform range of motion with her shoulder. - Related Data Allergies/Adverse Reactions: No Known Allergies Allergy (Verified 02/10/20 16:21) Past Medical History Renal/ Medical History: Reports: Hx Ovarian Cysts. Denies: Hx Peritoneal Dialysis Psychiatric Medical History: Reports: Hx Anxiety, Hx Depression, Hx Post Traumatic Stress Disorder Past Surgical History: Reports: Hx Breast Surgery - Lt bx, Hx Gynecologic Surgery - Ovarian cyst removal - Immunizations Hx Diphtheria, Pertussis, Tetanus Vaccination: Yes Physical Exam - Vital signs Vitals: Temp Pulse Resp BP Pulse Ox 99.9 F 95 20 150/77 H 95 02/10/20 16:18 02/10/20 16:18 02/10/20 16:18 02/10/20 16:18 02/10/20 16:18 General: No apparent distress. Alert and oriented x3. Skin: Intact without any jaundice, pallor, or erythema. Warm and dry. Musculoskeletal: Right Left Shoulder: Symmetric appearing shoulders with depression of the right shoulder. Unable to perform range of motion. Tenderness to palpation of the aspect of the shoulder. No erythema or evidence of infected joint. No swelling, ecchymosis, or deformities. No tenderness to palpation over elbow with full range of motion. Strength and sensation intact. Brisk capillary refill. Radial pulses 2+ bilaterally. Neuro: GCS 15. Course - Vital Signs Vital signs: Temp Pulse Resp BP Pulse Ox 99.9 F 95 20 150/77 H 95 02/10/20 16:18 02/10/20 16:18 02/10/20 16:18 02/10/20 16:18 02/10/20 16:18 Doctor's Discharge - Discharge Referrals: TORI MARS PA [Primary Care Provider] - Follow up as needed
--- NOTE | 2020-02-10 17:10 | RADIOLOGY REPORT (SQ) ---
EXAM DESCRIPTION: SHOULDER RIGHT 2 OR MORE VIEWS IMAGES COMPLETED DATE/TIME: 02/10/2020 4:43 pm REASON FOR STUDY: dislocation COMPARISON: None. NUMBER OF VIEWS: Two views. TECHNIQUE: Internal rotation and Y-view images acquired of the right shoulder. LIMITATIONS: None. FINDINGS: MINERALIZATION: Normal. BONES: No acute fracture. No worrisome bone lesions. JOINTS: No dislocation. VISUALIZED LUNGS AND RIBS: No pneumothorax. No rib fracture. SOFT TISSUES: No radiopaque foreign body. OTHER: No other significant finding. IMPRESSION: No current dislocation or other acute osseous abnormality. TECHNICAL DOCUMENTATION: JOB ID: [id number] 2010 [employer]- All Rights Reserved Reading location - IP/workstation name: [email or web address]
--- NOTE | 2020-02-10 17:25 | ER Document Report ---
ED Extremity Problem, Upper - General Chief Complaint: Shoulder Pain Stated Complaint: RIGHT SHOULDER PAIN Time Seen by Provider: 02/10/20 16:22 Primary Care Provider: JOSHUA AGOSTO MD [ACTIVE STAFF] - Follow up as needed TORI MARS PA [Primary Care Provider] - Follow up as needed TRAVEL OUTSIDE OF THE [place] IN LAST 30 DAYS: No - HPI Notes: 39-year-old female presents to ED for evaluation of right shoulder pain starting earlier today. Patient reports she was stretching when she felt a popping sensation to the posterior aspect of the shoulder. Patient reports that there is pain and burning sensations that radiate forward with inability to perform range of motion. Denies any pain to the elbow, hand, or wrist. Denies paresthesias. Patient has taken no medications for this prior to arrival. Denies any prior injuries to the shoulder. Denies any pain into the neck or back. Denies other complaints. Patient has not tried any ice at this time. - Related Data Allergies/Adverse Reactions: No Known Allergies Allergy (Verified 02/10/20 16:21) Past Medical History - Social History Smoking Status: Never Smoker Family History: Reviewed & Not Pertinent - Medical History Medical History: Negative Renal/ Medical History: Reports: Hx Ovarian Cysts. Denies: Hx Peritoneal Dialysis Psychiatric Medical History: Reports: Hx Anxiety, Hx Attention Deficit Hyperactivity Disorder, Hx Depression, Hx Post Traumatic Stress Disorder Past Surgical History: Reports: Hx Breast Surgery - Lt bx, Hx Gynecologic Surgery - Ovarian cyst removal - Immunizations Hx Diphtheria, Pertussis, Tetanus Vaccination: Yes Hx Pneumococcal Vaccination: 02/29/00 Review of Systems - Review of Systems Notes: Constitutional: Negative for fever. HENT: Negative for sore throat. Eyes: Negative for visual changes. Cardiovascular: Negative for chest pain. Respiratory: Negative for shortness of breath. Gastrointestinal: Negative for abdominal pain, vomiting or diarrhea. Genitourinary: Negative for dysuria. Musculoskeletal: Negative for back pain. + for right shoulder pain. Skin: Negative for rash. Neurological: Negative for headaches, weakness or numbness. 10 point ROS negative except as marked above and in HPI. Physical Exam - Vital signs Vitals: Temp Pulse Resp BP Pulse Ox 99.9 F 95 20 150/77 H 95 02/10/20 16:18 02/10/20 16:18 02/10/20 16:18 02/10/20 16:18 02/10/20 16:18 General: No apparent distress. Alert and oriented x3. Skin: Intact without any jaundice, pallor, or erythema. Warm and dry. Musculoskeletal: Right Shoulder: Tenderness to palpation along the posterior aspect of the shoulder. No erythema or evidence of infected joint. No swelling, ecchymosis, or deformities. Decreased range of motion with pain. No tenderness to palpation over elbow with full range of motion. Strength and sensation intact. Brisk capillary refill. Radial pulses 2+ bilaterally. Neuro: GCS 15. Course - Re-evaluation Re-evalutation: 02/10/20 17:55 39-year-old female presents to ED for evaluation of right shoulder injury. Patient was alleviated with x-rays of the shoulder. Xrays were negative for fracture or dislocation. Imaging was discussed with patient. Patient is advised that soft tissue injury or ligamentous tear cannot be ruled out. Patient is advised to rest, ice and elevate the extremity. Apply ice to the affected area 20 minutes on, 20 minutes off throughout the day. Patient is given a prescription for tizanidine and norco. Patient is given a referral to orthopedics for follow up. Is given a sling and encouraged to discontinue heavy lifting. Advised to return to the ED for any new or worsening symptoms. Given referral to see orthopedics. Understands course of management. Patient is agreement with care plan. - Vital Signs Vital signs: Temp Pulse Resp BP Pulse Ox 99.9 F 95 20 150/77 H 95 02/10/20 16:18 02/10/20 16:18 02/10/20 16:18 02/10/20 16:18 02/10/20 16:18 - Laboratory Results Critical Laboratory Results Reviewed: No Critical Results - Radiology Results Critical Radiology Results Reviewed: No Critical Results Discharge - Discharge Clinical Impression: Sprain of right shoulder Qualifiers: Encounter type: initial encounter Shoulder sprain type: unspecified sprain Qualified Code(s): S43.401A - Unspecified sprain of right shoulder joint, initial encounter Right shoulder pain Qualifiers: Chronicity: acute Qualified Code(s): M25.511 - Pain in right shoulder Condition: Stable Disposition: HOME, SELF-CARE Instructions: Pain Medication Injection ([facility]), Sling as Treatment ([facility]) Prescriptions: Hydrocodone/Acetaminophen [[place] 7.5-325 Tablet] 1 each PO TID #9 tablet Tizanidine HCl 4 mg PO TID #12 tablet Forms: Return to Work Referrals: TORI MARS PA [Primary Care Provider] - Follow up as needed JOSHUA AGOSTO MD [ACTIVE STAFF] - Follow up as needed
[2020-02-10] MEDS ORDERED: HYDROCODONE/ACETAMINOPHEN 5-325 MG TABLET PO ONE (17:38)
[2020-02-10 18:30] VITALS: BP 136/83
== END 2020-02-10 18:29 | disposition home or self-care (01) ==
LOC: ER 16:01
DX: S43.401A Unspecified sprain of right shoulder joint, initial encounter (principal); X58.XXXA Exposure to other specified factors, initial encounter; M25.511 Pain in right shoulder
CPT/HCPCS: 99283